=== PATIENT | male | born 1960 | race Caucasian/White ===

== ENCOUNTER → 2018-04-17 06:45 | Outpatient (CLI) | payer OTHER, SELFPAY | PROVIDERS: Family Provider Nurse Practitioner Primary Care; PCP Nurse Practitioner Primary Care | DX: K42.9 Umbilical hernia without obstruction or gangrene (principal); K40.90 Unilateral inguinal hernia, without obstruction or gangrene, not specified as recurrent; R10.31 Right lower quadrant pain | CPT/HCPCS: 74177; Q9967 ==

== ENCOUNTER 2018-09-07 09:42 | Inpatient (IN) | payer OTHER, SELFPAY ==
[2018-09-07] VITALS (12 sets, daily range): BP systolic 123–146; BP diastolic 72–83; PULSE 66–82; RESP 14–22; TEMP 36.4–37.1; O2SAT 95–99; BMI 28.8; BMI 28.6; BMI 28.7
--- NOTE | 2018-09-07 09:44 | NURSING ---
NO OLD EKGS
--- NOTE | 2018-09-07 10:01 | EKG12_ITS ---
Test Reason : CP Blood Pressure : / mmHG Vent. Rate : 081 BPM Atrial Rate : 081 BPM P-R Int : 200 ms QRS Dur : 092 ms QT Int : 382 ms P-R-T Axes : 065 085 097 degrees QTc Int : 443 ms Sinus rhythm with occasional Premature ventricular complexes Possible Left atrial enlargement Nonspecific ST abnormality Abnormal ECG Confirmed by CHARAN BAKER, GREG ([id number]), editor magazine WILBUR ALMEIDA ([id number]) on 09/12/2018 4:55:01 PM Referred By: SONG Confirmed By:GREG FARRAR MD
--- NOTE | 2018-09-07 10:01 | RAD_ITS ---
STUDY: X-RAY CHEST REASON FOR EXAM: Male, 57 years old. Chest pain. Shortness of breath. TECHNIQUE: Single AP portable view of the chest. COMPARISON: None. FINDINGS: EKG electrodes are seen. The lungs are clear and expanded. There is no demonstrated pleural abnormality. Sternal cerclage wires and vascular clips are present from a prior sternotomy and coronary artery bypass graft procedure (CABG). Borderline cardiomegaly. Normal mediastinum and wanda. Normal visualized pulmonary arteries. Normal visualized aortic arch and descending thoracic aorta. Normal visualized thoracic spine. Normal visualized ribs, clavicles, and shoulders. There is no demonstrated abnormality of the visualized soft tissue structures of the upper abdomen. RAD/Chest 1 View (Portable) IMPRESSION: Borderline cardiomegaly. Electronically Signed: Corby Summers MD at 11:14 EST Tel [phone], Service support ,
[2018-09-07 10:34] LABS: Absolute Lymphocyte Count 1.74 X10^3/ul (0.83-4.51); Absolute Neutrophil Count 5.2 X10^3/uL (2.0-7.7); Basophil# 0.03 X10^3/uL; Basophil% 0.4 % (0-1); Eosinophil# 0.08 X10^3/uL; Hematocrit 50.2 % (40-54); Hemoglobin 17.1 g/dl (13.0-16.5); Lymphocyte # 1.74 X10^3/ul (4.0); Lymphocyte % 21.6 % (19-41); Mean Corp Hgb Conc 34.1 g/gl (32-36); Mean Corpuscular Hgb 32.1 pg (27.0-32.0); Mean Corpuscular Volume 94.2 fL (80-94); Mean Platelet Vol. 11.4 fl (6.2-12.0); Monocyte# 0.97 X10^3/uL; Neutrophil # 5.23 X10^3/uL (2.7-7.7); Neutrophil % 64.8 % (47-70); Platelet Count 158 K/mm3 (150-450); RBC Distribution Width CV 13.6 % (11.6-14.6); RBC Distribution Width SD 46.6 fl (35.1-43.9); Red Blood Count 5.33 M/mm3 (4.6-6.2); White Blood Count 8.1 K/mm3 (4.4-11.0)
[2018-09-07 10:35] LABS: POSITIVE COUNT NO; POSITIVE DIFFERENTIAL NO; POSITIVE MORPHOLOGY NO
[2018-09-07] MEDS: 0.9% Normal Saline 1,000 ML 150 ML IV (10:35)
[2018-09-07] MEDS: Aspirin 81 MG TAB.CHEW 324 MG PO (10:35)
[2018-09-07 10:48] LABS: Anion Gap 12 (5-15); BUN 16 mg/dL (7-18); BUN/Creat Ratio 13.6 RATIO (10-20); Calcium,Total 8.6 mg/dL (8.5-10.1); Chloride 106 mmol/L (98-107); Creatinine, Serum 1.18 mg/dL (0.70-1.30); EST Glomerular Filtration Rate 67 mL/min (>60); Est Glom Filt Rate - Afr Amer 81 mL/min (>60); Estimated Creatinine Clearance 66.02 ml/min; Glucose 137 mg/dL (74-106); Potassium 3.8 mmol/L (3.5-5.1); Sodium Level 142 mmol/L (136-145)
--- NOTE | 2018-09-07 10:51 | ED.RN ---
LAB RESULTED TROPONIN 15.6, PHYSICIAN NOTIFIED
--- NOTE | 2018-09-07 10:55 | ED.VISSUMM ---
- ER Visit Summary Date of Service: 09/07/18 Chief Complaint: Chest pain History of Present Illness: The patient is a 57 M who sees Elif Bobo. 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 He has a history of a four-vessel CABG in 2006. Patient reports that over the past 6 weeks he has had increasing dyspnea on exertion. 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 This is been progressively worsening. 3 days ago he had an episode of chest pain while unloading a truck. Yesterday he had an episode while driving. This morning he had an episode lasted approximately 20 minutes while he was walking around at home. Describes the pain as crushing. Is 9 out of 10 at worst and is pain-free currently. Is worsened by exertion and relieved by time. States pain does make him short of breath. Denies any nausea, vomiting, or diaphoresis. Physical Examination: Vitals: Stable. Afebrile. General: Well-nourished and well-developed. Head: Normocephalic atraumatic. Neck: Supple, no lymphadenopathy. No JVD. Nontender. Cardiovascular: Regular rate and rhythm. No murmurs. Respiratory: No respiratory distress. Clear to auscultation bilaterally. Abdominal: Soft, nontender, nondistended, normal bowel sounds. No guarding, rebound, or peritoneal signs. Back: Nontender. Extremities: Nontender, no edema. Skin: Normal color, no rash. Neurologic: Alert and oriented ?3. Cranial nerves II through XII are intact. Normal strength and sensation. Psych: Normal affect. Test Results: EKG is sinus at 81 with a PVC. He has inferolateral ST depression. There is no old EKG for comparison. His troponin is 15.6. Chem-7 is more for glucose of 137. CBC is more for hemoglobin of 17.1 monocytes of 12. Chest x-ray shows cardiomegaly. No failure. Emergency Department Course and Treatment: Patient was treated with aspirin p.o. initially. When his troponin returned he was discussed with Dr. Damian. He was given heparin IV with a full bolus. He was given 300 mg of Plavix p.o. Treatment Plan: Patient will be discussed with the hospitalist and admitted for further evaluation and treatment. Disposition: Admitted in serious condition. Impression: 1. Non-ST elevation [place]. 2. ROBERTO CARLOS score of 4. 3. Critical care time 30 minutes. This note was generated with [employer] dictation software. It may contain incorrect words, spelling, and punctuation that were not noted in review of the chart prior to signing ED Disposition - Plan for ED Patient: Chief Complaint: Chest Pain Referrals: Elif Bobo, RADHA-C [Primary Care Provider] -
--- NOTE | 2018-09-07 10:59 | ED.DCSUM_ITS ---
- ER Visit Summary Date of Service: 09/07/18 Chief Complaint: Chest pain History of Present Illness: The patient is a 57 M who sees Elif Bobo. He does not see a high tension tester. He has a history of a four-vessel CABG in 2006. Patient reports that over the past 6 weeks he has had increasing dyspnea on e xertion. 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 This is been progressively worsening. 3 days ago he had an episode of chest pain while unloading a truck. Yesterday he had an episode while driving. This morning he had an episode lasted approximately 20 minutes while he was walking around at home. Describes the pain as crushing. Is 9 out of 10 at worst and is pain-free currently. Is worsened by exertion and relieved by time. States pain does make him short of breath. Denies any nausea, vomiting, or diaphoresis. Physical Examination: Vitals: Stable. Afebrile. General: Well-nourished and well-developed. Head: Normocephalic atraumatic. Neck: Supple, no lymphadenopathy. No JVD. Nontender. Cardiovascular: Regular rate and rhythm. No murmurs. Respiratory: No respiratory distress. Clear to auscultation bilaterally. Abdominal: Soft, nontender, nondistended, normal bowel sounds. No guarding, rebound, or peritoneal signs. Back: Nontender. Extremities: Nontender, no edema. Skin: Normal color, no rash. Neurologic: Alert and oriented ?3. Cranial nerves II through XII are intact. Normal strength and sensation. Psych: Normal affect. Test Results: EKG is sinus at 81 with a PVC. He has inferolateral ST depression. There is no old EKG for comparison. His troponin is 15.6. Chem-7 is more for glucose of 137. CBC is more for hemoglobin of 17.1 monocytes of 12. Chest x-ray shows cardiomegaly. No failure. Emergency Department Course and Treatment: Patient was treated with aspirin p.o. initially. When his troponin returned he was discussed with Dr. Damian. He was given heparin IV with a full bolus. He was given 300 mg of Plavix p.o. Treatment Plan: Patient will be discussed with the hospitalist and admitted for further evaluation and treatment. Disposition: Admitted in serious condition. Impression: 1. Non-ST elevation [place]. 2. ROBERTO CARLOS score of 4. 3. Critical care time 30 minutes. This note was generated with [employer] dictation software. It may contain incorrect words, spelling, and punctuation that were not noted in review of the chart prior to signing ED Disposition - Plan for ED Patient: Chief Complaint: Chest Pain Referrals: Elif Bobo, RADHA-C [Primary Care Provider] -
[2018-09-07 11:13] LABS: International Normalized Ratio 0.9; Prothrombin Time (Protime)PT. 12.5 SECONDS (11.7-14.9)
[2018-09-07] MEDS: Heparin Injection (Vial) 5,000 UNIT/ML VIAL 6000 UNIT IV (11:19)
[2018-09-07] MEDS: HEPARIN/D5w 25,000 UNITS 25,000 UNITS/250 ML IV.SOLN. 12 UNITS IV (11:19)
[2018-09-07] MEDS: Clopidogrel Bisulfate 300 MG Tablet PO (11:19)
--- NOTE | 2018-09-07 11:23 | CASEMGMT ---
According to [employer] website, the following are in-network tertiary facilities: [facility], [place], [facility], [facility], [facility], and . Ld ARECHIGA CM
--- NOTE | 2018-09-07 11:34 | EKG12_ITS ---
Test Reason : CHEST PAIN Blood Pressure : / mmHG Vent. Rate : 062 BPM Atrial Rate : 062 BPM P-R Int : 206 ms QRS Dur : 088 ms QT Int : 408 ms P-R-T Axes : 057 076 042 degrees QTc Int : 414 ms Normal sinus rhythm Possible Left atrial enlargement Nonspecific ST and T wave abnormality Abnormal ECG When compared with ECG of 07-SEP-2018 09:43, MANUAL COMPARISON REQUIRED, DATA IS UNCONFIRMED Confirmed by CHARAN BAKER, GREG ([id number]), editorial manager WILBUR ALMEIDA ([id number]) on 09/12/2018 5:37:49 PM Referred By: JACKI Confirmed By:GREG FARRAR MD
--- NOTE | 2018-09-07 11:36 | ECHOD_ITS ---
Reason For Study: Chest pain Procedure This was a 2D Doppler, Color Flow transthoracic echocardiogram. Exam performed portable in patient room. Left Ventricle Normal left ventricle. Mild concentric left ventricular hypertrophy. Left ventricular systolic function is normal. Mild segmental systolic dysfunction (see wall motion). The estimated ejection fraction is 50 %. Mid-Anterior : Hypokinetic. [place] : Hypokinetic. Right Ventricle Normal RV size. Normal systolic function. Atria Normal left atrium. Normal right atrium. Mitral Valve Normal mitral valve. Mild (1+) eccentric mitral valve insufficiency. Tricuspid Valve Normal tricuspid valve. Mild (1+) tricuspid valve insufficiency. Pulmonary artery systolic pressure is 52 mmHg. Moderate pulmonary hypertension. Aortic Valve Mild (1+) eccentric aortic valve insufficiency. Pulmonic Valve Normal pulmonic valve. Mild (1+) pulmonic valve insufficiency. Great Vessels Normal aortic root. The pulmonary artery is normal size. Normal inferior vena cava. Pericardium/Pleural No pericardial effusion. MMode/2D Measurements & Calculations LVIDd: 4.3 cm IVSd: 1.2 cm Ao root diam: 2.9 cm LVIDs: 3.2 cm LVPWd: 1.4 cm RVDd: 3.8 cm FS: 25.0 % LAV(MOD-bp): 45.8 ml LVAd ap4: 32.7 cm2 SV(MOD-sp4): 50.7 ml LAV(MOD-bp) Indexed: 22.9 ml/m2 EDV(MOD-sp4): 101.4 ml LAV(MOD-sp2): 34.5 ml EDV(sp4-el): 105.6 ml LAV(MOD-sp4): 53.0 ml LVAs ap4: 22.0 cm2 ESV(MOD-sp4): 50.7 ml ESV(sp4-el): 52.9 ml EF(MOD-sp4): 50.0 % EF(sp4-el): 49.9 % SV(sp4-el): 52.7 ml LA A4 area: 19.6 cm2 LA dimension(2D): 4.4 cm RA A4 area: 17.2 cm2 Doppler Measurements & Calculations MV E max deepak: 92.9 cm/sec Lat Peak E' Deepak: 10.1 cm/sec Med Peak E' Deepak: 5.9 cm/sec MV A max deepak: 80.8 cm/sec E/E' lat: 9.2 E/E' med: 15.6 MV E/A: 1.1 Ao V2 max: 99.7 cm/sec LV V1 max: 83.7 cm/sec PA V2 max: 104.5 cm/sec Ao max P.0 mmHg LV V1 max P.8 mmHg TR max deepak: 343.5 cm/sec TR max P.2 mmHg Interpretation Summary Normal left ventricle. Left ventricular systolic function is normal. Mild segmental systolic dysfunction (see wall motion). The estimated ejection fraction is 50 %. Mild (1+) tricuspid valve insufficiency. Pulmonary artery systolic pressure is 52 mmHg. Moderate pulmonary hypertension. Ordering Physician: Devin Armenta Referring Physician: Elif Bobo Performed By: Kerri Patel RDCS
--- NOTE | 2018-09-07 14:09 | PCM.HP.STD ---
Problem List (1) NSTEMI (non-ST elevated myocardial infarction) Status: Acute (2) Back pain Status: Chronic (3) Dyslipidemia Status: Chronic (4) CAD (coronary artery disease) Status: Chronic Comment: History CABG ?2006 (5) HTN (hypertension) Status: Chronic History of Present Illness Date of Admission: 09/07/18 Chief Complaint: Chest Pain The patient is a 57 year old M with PMH as below who presents with a few day history of substernal chest pain. He states that it is inconsistent as to when it happens. 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 However he went to see a nurse practitioner yesterday for his chest pain and on the brought drive from her office to obtain labs at [facility], he had chest pain for about 35-40 minutes. And then this morning he woke up and was just sitting drinking coffee and had another episode of chest pain for 35 minutes. The pain does not radiate anywhere, but it is substernal and crushing. He states that he had four-vessel CABG 11 years ago and at that time he had chest pain that was radiating up to his head. In the ER he was found to have an elevated troponin to 15.6 which increased to 16.9 on repeat, EKG had inferior lateral ST depressions, but no ST elevations. Cardiology was called and they recommended a heparin drip and a Plavix bolus, which he received down in the ER. He will be admitted for NSTEMI and cardiac cath in the morning. Past Medical History Past Medical History (Chronic Problems): Chronic Problems Back pain (Chronic) Benign hematuria (Chronic) Dyslipidemia (Chronic) CAD (coronary artery disease) (Chronic) History CABG ?2006 HTN (hypertension) (Chronic) Allergies No Known Allergies Allergy (Verified 09/07/18 09:47) Home Medications: Ambulatory Orders Medication Instructions Recorded Niacin [Niacin ER] 1,000 mg PO QODAY 04/21/15 Albuterol IH (ProAir) [Proair Hfa] 1 - 2 puff INHALATION Q4H PRN 09/07/18 Hydrochlorothiazide [Hctz] 12.5 mg PO DAILY 09/07/18 Meloxicam [Mobic] 15 mg PO QHS 09/07/18 Metoprolol Tartrate [Lopressor 100 mg PO BID 09/07/18 (beta juan)] Tiotropium Br/Olodaterol HCl 1 puff IH DAILY 09/07/18 [Stiolto Respimat Inhal [place]] Surgical History: herniorrhaphy, - - Four-vessel CABG Lives: Alone Smoking Status: Current every day smoker Tobacco Use: Cigarettes Alcohol: None Drugs: None - *Family History Maternal History Items: Heart Disease, Stroke Paternal History Items: Cancer, Heart Disease Review of Systems Constitutional: Denies: Chills, Fever, Weight Change HEENT: Denies: Head Aches, Sinus Congestion, Sinus Drainage Cardiovascular: Reports: Chest Pain. Denies: Palpitations Respiratory: Reports: Shortness of Breath. Denies: Cough, Shortness of breath at rest, Sputum production Gastrointestinal: Denies: Abdominal Pain, Nausea, Vomiting Genitourinary: Denies: Dysuria Musculoskeletal: Denies: Joint Pain, Joint Tenderness Skin: Denies: Rash, Wounds Neurological: Denies: Numbness, Tingling, Focal weakness Psychiatric: Denies: Anxiety, Depression Hematologic/ Lymphatic: Denies: Easy Bruising, Easy Bleeding VTE Information - Inpt Only VTE Present on Admission: No Patient Problems: Active and Suspected Problems NSTEMI (non-ST elevated myocardial infarction) (Acute) - Physical Exam General: Alert, Oriented x3, Cooperative, No apparent distress HEENT: Atraumatic, PERRLA, EOMI, Normocephalic Oral: Moist Mucosa Neck: Supple, No JVD, Trachea Midline Lungs: Clear to auscultation, Normal air movement, No rhonchi, No wheeze, No rales Cardiovascular: Regular rate, Regular Rhythm, Normal S1, Normal S2, No murmurs, No rub noted, No Gallop Abdomen: Soft, Non Tender, Non-Distended, No Hepato-splenomegaly Extremities: No edema, Capillary Refill Less than 3 Seconds Skin: No rashes, No breakdown Neurological: Neuro grossly intact, Sensory exam intact to light touch and pain Psych/Mental Status: Normal Affect, Appropriate Vital Signs Temp Pulse Resp BP Pulse Ox 98.1 F 70 16 146/72 H 97 09/07/18 11:39 09/07/18 12:17 09/07/18 11:39 09/07/18 11:39 09/07/18 11:39 Oxygen Flow Rate (L/min) 2 Oxygen Delivery Method Room Air Weight: 188 lb 7.924 oz Body Mass Index (BMI) 28.6 Laboratory Tests Past 24 Hrs 09/07/18 09/07/18 09/07/18 09:54 09:54 09:57 WBC 8.1 RBC 5.33 Hgb 17.1 H Hct 50.2 MCV 94.2 H MCH 32.1 H MCHC 34.1 RDW 13.6 RDW Differential 46.6 H Plt Count 158 MPV 11.4 Immature Gran % (Auto) 0.200 Neut % (Auto) 64.8 Lymph % (Auto) 21.6 [place] % (Auto) 12.0 H Eos % (Auto) 1.0 Baso % (Auto) 0.4 Absolute Neuts (auto) 5.2 Absolute Lymphs (auto) 1.74 Total Counted Not Reportable PT 12.5 INR 0.9 APTT 27.0 Sodium 142 Potassium 3.8 Chloride 106 Carbon Dioxide 24.0 Anion Gap 12 BUN 16 Creatinine 1.18 Estim Creat Clear Calc 66.02 Est GFR (MDRD) Af Amer 81 Est GFR (MDRD) Non-Af 67 BUN/Creatinine Ratio 13.6 Glucose 137 H Calcium 8.6 Troponin I 15.600 H* 09/07/18 12:54 WBC RBC Hgb Hct MCV MCH MCHC RDW RDW Differential Plt Count MPV Immature Gran % (Auto) Neut % (Auto) Lymph % (Auto) [place] % (Auto) Eos % (Auto) Baso % (Auto) Absolute Neuts (auto) Absolute Lymphs (auto) Total Counted PT INR APTT Sodium Potassium Chloride Carbon Dioxide Anion Gap BUN Creatinine Estim Creat Clear Calc Est GFR (MDRD) Af Amer Est GFR (MDRD) Non-Af BUN/Creatinine Ratio Glucose Calcium Troponin I 16.900 H* Assessment/Plan All Active Problems NSTEMI (non-ST elevated myocardial infarction) (Acute) 1. Coronary artery disease status post four-vessel CABG 11 years ago/NSTEMI/hyperlipidemia/hypertension -Continue with heparin drip -Received Plavix load as well as aspirin -Daily aspirin and Plavix -Currently on niacin because he has tried multiple different statins and had myalgias and significant joint pain -Plan for cardiac cath tomorrow -Echo pending -Systolic blood pressure so far in the 120s-140s, can continue with hydrochlorothiazide and metoprolol. Since cardiology is consulted we will leave it up to them to decide if they want to make changes to his blood pressure medications 2. COPD -Stable -Continue with his home inhaler occasions DVT: Heparin drip Code Visit Inpatient E&M: 40083 Init Hosp L3
--- NOTE | 2018-09-07 16:10 | CON.PCM_ITS ---
Problem List (1) NSTEMI (non-ST elevated myocardial infarction) Status: Acute Reason for Consult Date of Consultation: 09/07/18 History of Present Illness: The patient is a 57 year old M with past medical history significant for coronary artery disease status post CABG in 2006. Does not follow with a medication specialist on a regular basis. The patient also has history of hypertension. He takes his blood pressure medications but but does not take an aspirin. According to him, he just did not know that he needs to take aspirin on a daily basis. 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 The episode lasted about 10 minutes. He associated with shortness of breath. He has had another episode last night. This episode lasted about 30-35 minutes and was associated with diaphoresis. He describes his chest pressure as going through his anterior chest. Has any radiation to the arm neck or shoulder shoulder. No radiation to the jaw. The patient again had recurrence of his chest discomfort this morning which woke him up from sleep. According to the patient, this was the most intense episode. He had diaphoresis and shortness of breath. No nausea or vomiting. According to the p atient, by the time he reached the emergency room, his pain had greatly subsided by itself. His pain was totally relieved by itself shortly thereafter. The patient's troponin was noted to be elevated. He has therefore been admitted with a diagnosis of non-ST elevation myocardial infarction. He remains pain- free here in the hospital. [] Past Medical History Allergies/Adverse Reactions: Allergies No Known Allergies Allergy (Verified 09/07/18 09:47) Home Medications: Ambulatory Orders Medication Instructions Recorded Niacin [Niacin ER] 1,000 mg PO QODAY 04/21/15 Albuterol IH (ProAir) [Proair Hfa] 1 - 2 puff INHALATION Q4H PRN 09/07/18 Hydrochlorothiazide [Hctz] 12.5 mg PO DAILY 09/07/18 Meloxicam [Mobic] 15 mg PO QHS 09/07/18 Metoprolol Tartrate [Lopressor 100 mg PO BID 09/07/18 (beta juan)] Tiotropium Br/Olodaterol HCl 1 puff IH DAILY 09/07/18 [Stiolto Respimat Inhal [place]] Past Medical History (Chronic Problems): Chronic Problems Back pain (Chronic) Benign hematuria (Chronic) Dyslipidemia (Chronic) CAD (coronary artery disease) (Chronic) History CABG ?4 2006 HTN (hypertension) (Chronic) Surgical History: herniorrhaphy, - - Four-vessel CABG - *Family History Paternal History Items: Cancer, Heart Disease Maternal History Items: Heart Disease, Stroke Lives: Alone Smoking Status: Current every day smoker Tobacco Use: Cigarettes Alcohol: None Drugs: None Review of Systems - Review of Systems General: Denies: Fever, Chills, Anorexia, Weight Loss HEENT: Denies: Head Aches Cardiovascular: Reports: Chest Discomfort at Rest, Shortness of Breath at Rest. Denies: Orthopnea, PND, Near Syncope, Syncope Gastrointestinal: Denies: Abdominal Discomfort, Jaundice, Nausea, Emesis, Hematemesis Muscoloskeletal: Denies: Myalgias Neurological: Denies: History of TIA, History of CVA Hematologic/ Lymphatic: Denies: Anemia, Easy Brusing, Easy Bleeding Subjectve: Comfortable. No apparent distress. Sitting up in a chair. Objective: Vital Signs Temp Pulse Resp BP Pulse Ox 98.1 F 66 16 146/72 H 97 09/07/18 11:39 09/07/18 15:21 09/07/18 11:39 09/07/18 11:39 09/07/18 11:39 Oxygen Flow Rate (L/min) 2 Oxygen Delivery Method Room Air Weight: 85.5 kg Body Mass Index (BMI) 28.6 General: Healthy Appearing, Awake, Alert, Oriented x 3, No Acute Distress HEENT: Atraumatic, Normocephalic Oral: Moist Mucosa Neck: Supple, No JVD Lungs: Clear to auscultation Cardiovascular: Regular Rhythm, Normal S1, Normal S2 Vascular: No Carotid Bruits 09/07/18 09:54: WBC 8.1, RBC 5.33, Hgb 17.1 H, Hct 50.2, MCV 94.2 H, MCH 32.1 H, MCHC 34.1, RDW 13.6, RDW Differential 46.6 H, Plt Count 158, MPV 11.4, Immature Gran % (Auto) 0.200, Neut % (Auto) 64.8, Lymph % (Auto) 21.6, [place] % (Auto) 12.0 H, Eos % (Auto) 1.0, Baso % (Auto) 0.4, Absolute Neuts (auto) 5.2, Total Counted Not Reportable 09/07/18 09:54: Sodium 142, Potassium 3.8, Chloride 106, Carbon Dioxide 24.0, Anion Gap 12, BUN 16, Creatinine 1.18, Est GFR (MDRD) Af Amer 81, Est GFR (MDRD) Non-Af 67, BUN/Creatinine Ratio 13.6, Glucose 137 H, Calcium 8.6, Troponin I 15.600 H* 09/07/18 09:57: PT 12.5, INR 0.9, APTT 27.0 09/07/18 12:54: Troponin I 16.900 H* Rhythm: EKG: ECHO: Stress Test: Cardiac Cath: PCI: CT Surgery: Holter monitor: EPS: PPM: CXR: Chest CT Scan:
--- NOTE | 2018-09-07 17:05 | PCA ---
FAXED TO [facility] IN [facility], [place] FOR BYPASS REPORT FROM 2006. HIM STATES THEY ONLY KEEP RECORDS 10 YEARS. THEY WILL CHECK TO SEE IF RECORDS STILL AVAILABLE.
[2018-09-07] MEDS: Nitroglycerin Oint 1 INCH PACKET TRANSDERM. ×2 (17:20→21:15)
[2018-09-07] MEDS: Enoxaparin 80 MG/0.8 ML Syringe SC (17:20)
[2018-09-07 17:55] LABS: Partial Thromboplast Time 85.9 Seconds (24.1-36.2)
--- NOTE | 2018-09-07 19:11 | PCA ---
Received available records for bypass surgery and placed on chart
[2018-09-07] MEDS: Metoprolol Tartrate 100 MG Tablet PO (21:14)
[2018-09-08] VITALS (32 sets, daily range): BP systolic 98–158; BP diastolic 29–108; PULSE 62–82; RESP 12–26; TEMP 35.6–37; O2SAT 95–100; BMI 28.7
[2018-09-08 04:55] LABS: Absolute Lymphocyte Count 1.35 X10^3/ul (0.83-4.51); Absolute Neutrophil Count 5.5 X10^3/uL (2.0-7.7); Basophil# 0.04 X10^3/uL; Basophil% 0.5 % (0-1); Eosinophils% 1.3 % (0-5); Hematocrit 43.6 % (40-54); Hemoglobin 15.2 g/dl (13.0-16.5); Lymphocyte # 1.35 X10^3/ul (4.0); Lymphocyte % 17.3 % (19-41); Mean Corp Hgb Conc 34.9 g/gl (32-36); Mean Corpuscular Hgb 32.9 pg (27.0-32.0); Mean Corpuscular Volume 94.4 fL (80-94); Mean Platelet Vol. 10.6 fl (6.2-12.0); Monocyte# 0.81 X10^3/uL; Monocyte% 10.4 % (0-10); Neutrophil # 5.46 X10^3/uL (2.7-7.7); Neutrophil % 70.1 % (47-70); POSITIVE COUNT NO; POSITIVE DIFFERENTIAL NO; POSITIVE MORPHOLOGY NO; Platelet Count 134 K/mm3 (150-450); RBC Distribution Width CV 13.7 % (11.6-14.6); RBC Distribution Width SD 45.6 fl (35.1-43.9); Red Blood Count 4.62 M/mm3 (4.6-6.2); White Blood Count 7.8 K/mm3 (4.4-11.0)
[2018-09-08 05:03] LABS: Prothrombin Time (Protime)PT. 13.3 SECONDS (11.7-14.9)
[2018-09-08 05:04] LABS: Partial Thromboplast Time 30.4 Seconds (24.1-36.2)
[2018-09-08] MEDS: Nitroglycerin Oint 1 INCH PACKET TRANSDERM. (05:09)
[2018-09-08] MEDS: Clopidogrel Bisulfate 75 MG Tablet PO (05:09)
[2018-09-08] MEDS: 0.9% Normal Saline 1,000 ML 15 ML IV (05:09)
[2018-09-08] MEDS: Metoprolol Tartrate 100 MG Tablet PO ×2 (05:09→21:26)
[2018-09-08] MEDS: Aspirin 81 MG TAB.CHEW PO (05:09)
[2018-09-08 05:20] LABS: Anion Gap 7 (5-15); BUN 17 mg/dL (7-18); BUN/Creat Ratio 17.7 RATIO (10-20); Chloride 109 mmol/L (98-107); Cholesterol 198 mg/dL (200); Creatinine, Serum 0.96 mg/dL (0.70-1.30); EST Glomerular Filtration Rate 85 mL/min (>60); Est Glom Filt Rate - Afr Amer 103 mL/min (>60); Estimated Creatinine Clearance 81.15 ml/min; Glucose 96 mg/dL (74-106); High Density Lipoprotein 29 mg/dL; Potassium 4.1 mmol/L (3.5-5.1); Sodium Level 142 mmol/L (136-145); Triglycerides 402 mg/dL
--- NOTE | 2018-09-08 05:55 | EKG12_ITS ---
Test Reason : AM EKG Blood Pressure : / mmHG Vent. Rate : 065 BPM Atrial Rate : 065 BPM P-R Int : 210 ms QRS Dur : 086 ms QT Int : 414 ms P-R-T Axes : 056 060 069 degrees QTc Int : 430 ms Sinus rhythm with 1st degree A-V block Possible Left atrial enlargement Nonspecific ST and T wave abnormality Abnormal ECG When compared with ECG of 07-SEP-2018 11:40, MANUAL COMPARISON REQUIRED, DATA IS UNCONFIRMED Confirmed by CHARAN BAKER, GREG ([id number]), research editor WILBUR ALMEIDA ([id number]) on 09/12/2018 5:36:43 PM Referred By: DR ECHEVERRIA Confirmed By:GREG FARRAR MD
--- NOTE | 2018-09-08 09:10 | CASEMGMT ---
HAWK ARMAS NOTE: Pt states he does not have LW or HCPOA . Interested in more information but states does not want to talk with SW at this time to complete paperwork. Provided information on advanced directives and given Social Service rac card with number to call if chooses in the future to utilize [facility] social work for advanced directive completion. Educated patient that, if patient so chooses, can come back to [facility] and meet with a SW as an outpatient to complete health care advanced directives. Patient expresses understanding. Finesse HUMPHREY RN CM
--- NOTE | 2018-09-08 10:52 | PCM.PN.HOSP ---
Patient Problems: Active and Suspected Problems NSTEMI (non-ST elevated myocardial infarction) (Acute) Subjective: States that he is a little short of breath though no chest pain at the moment. Waiting for cardiac cath Vitals/I&O's: Vital Signs Temp Pulse Resp BP Pulse Ox 98.6 F 63 18 110/65 95 09/08/18 05:05 09/08/18 07:12 09/08/18 05:05 09/08/18 05:05 09/08/18 05:05 Oxygen Flow Rate (L/min) 2 Oxygen Delivery Method Room Air Weight: 188 lb 7.924 oz Body Mass Index (BMI) 28.6 Intake and Output for Last 24 Hours 09/06/18 09/07/18 09/08/18 23:59 23:59 23:59 Intake Total 308 / 308 0 / 0 Output Total 200 / 200 Balance 108 / 108 0 / 0 General: Alert, Oriented x3, Cooperative, No apparent distress HEENT: Atraumatic, PERRLA, EOMI, Normocephalic Oral: Moist Mucosa Neck: Supple, No JVD, Trachea Midline Lungs: Clear to auscultation, Normal air movement, No rhonchi, No wheeze, No rales Cardiovascular: Regular rate, Regular Rhythm, Normal S1, Normal S2, No murmurs, No rub noted, No Gallop Abdomen: Soft, Non Tender, Non-Distended, No Hepato-splenomegaly Extremities: No edema, Capillary Refill Less than 3 Seconds Skin: No rashes, No breakdown Neurological: Neuro grossly intact, Sensory exam intact to light touch and pain Psych/Mental Status: Normal Affect, Appropriate Laboratory Results 09/07/18 09:54: Sodium 142, Potassium 3.8, Chloride 106, Carbon Dioxide 24.0, Anion Gap 12, BUN 16, Creatinine 1.18, Estim Creat Clear Calc 66.02, Est GFR (MDRD) Af Amer 81, Est GFR (MDRD) Non-Af 67, BUN/Creatinine Ratio 13.6, Glucose 137 H, Calcium 8.6, Troponin I 15.600 H* 09/07/18 09:57: PT 12.5, INR 0.9, APTT 27.0 09/07/18 12:54: Troponin I 16.900 H* 09/07/18 15:30: Troponin I 22.700 H* 09/07/18 17:32: APTT 85.9 H 09/08/18 04:40: WBC 7.8, RBC 4.62, Hgb 15.2, Hct 43.6, MCV 94.4 H, MCH 32.9 H, MCHC 34.9, RDW 13.7, RDW Differential 45.6 H, Plt Count 134 L, MPV 10.6, Immature Gran % (Auto) 0.400, Neut % (Auto) 70.1 H, Lymph % (Auto) 17.3 L, [place]pherson % (Auto) 10.4 H, Eos % (Auto) 1.3, Baso % (Auto) 0.5, Absolute Neuts (auto) 5.5, Absolute Lymphs (auto) 1.35, Total Counted Not Reportable 09/08/18 04:40: Sodium 142, Potassium 4.1, Chloride 109 H, Carbon Dioxide 26.0, Anion Gap 7, BUN 17, Creatinine 0.96, Estim Creat Clear Calc 81.15, Est GFR (MDRD) Af Amer 103, Est GFR (MDRD) Non-Af 85, BUN/Creatinine Ratio 17.7, Glucose 96, Calcium 8.0 L, Triglycerides 402 H, Cholesterol 198, LDL Cholesterol TNP, VLDL Cholesterol TNP, HDL Cholesterol 29 L 09/08/18 04:40: PT 13.3, INR 1.0, APTT 30.4 Current Medications Aspirin (Aspirin, Baby) 81 mg PO DAILY@0800 [facility] Last Admin: 09/08/18 05:09 Dose: 81 mg Clopidogrel Bisulfate (Plavix) 75 mg PO DAILY [facility] Last Admin: 09/08/18 05:09 Dose: 75 mg Heparin Sodium (Porcine) (Heparin Na) 0 unit IV UD PRN; Protocol Hydrochlorothiazide () 12.5 mg PO DAILY [facility] Sodium Chloride () 1,000 mls @ 15 mls/hr IV .Q48H [facility] Last Admin: 09/08/18 05:09 Dose: 15 mls/hr Magnesium Hydroxide (Milk Of Magnesia) 30 ml PO DAILY PRN PRN Reason: Constipation Metoprolol Tartrate (Lopressor (Beta Kim)) 100 mg PO BID [facility] Last Admin: 09/08/18 05:09 Dose: 100 mg Niacin (Niaspan) 1,000 mg PO QODAY [facility] Last Admin: 09/08/18 05:09 Dose: 1,000 mg Nitroglycerin (Nitrobid) 1 inch TRANSDERM. Q8 [facility] Last Admin: 09/08/18 05:09 Dose: 1 inch Sodium Chloride () 5 - 15 ml IV UD PRN PRN Reason: SALINE FLUSH Medical Necessity - Tobacco Use Smoking Status: Current every day smoker Tobacco Use: Cigarettes Assessment/Plan All Active Problems NSTEMI (non-ST elevated myocardial infarction) (Acute) 1. Coronary artery disease status post four-vessel CABG 11 years ago/NSTEMI/hyperlipidemia/hypertension -Hold heparin drip for procedure -Received Plavix load as well as aspirin -Daily aspirin and Plavix -Currently on niacin because he has tried multiple different statins and had myalgias and significant joint pain -Plan for cardiac cath today -Echo with an EF of 50% with mild segmental systolic dysfunction in the mid anterior and apex, with a pulmonary artery systolic pressure of 52 mmHg -Systolic blood pressure so far in the 120s-140s, can continue with hydrochlorothiazide and metoprolol. Since cardiology is consulted we will leave it up to them to decide if they want to make changes to his blood pressure medications 2. COPD -Stable -Continue with his home inhaler occasions DVT: Heparin drip Code Visit Inpatient E&M: 24994 Subs Hosp L2
--- NOTE | 2018-09-08 10:55 | PN_ITS ---
Patient Problems: Active and Suspected Problems NSTEMI (non-ST elevated myocardial infarction) (Acute) Subjective: States that he is a little short of breath though no chest pain at the moment. Waiting for cardiac cath Vitals/I&O's: Vital Signs Temp Pulse Resp BP Pulse Ox 98.6 F 63 18 110/65 95 09/08/18 05:05 09/08/18 07:12 09/08/18 05:05 09/08/18 05:05 09/08/18 05:05 Oxygen Flow Rate (L/min) 2 Oxygen Delivery Method Room Air Weight: 188 lb 7.924 oz Body Mass Index (BMI) 28.6 Intake and Output for Last 24 Hours 09/06/18 09/07/18 09/08/18 23:59 23:59 23:59 Intake Total 308 / 308 0 / 0 Output Total 200 / 200 Balance 108 / 108 0 / 0 General: Alert, Oriented x3, Cooperative, No apparent distress HEENT: Atraumatic, PERRLA, EOMI, Normocephalic Oral: Moist Mucosa Neck: Supple, No JVD, Trachea Midline Lungs: Clear to auscultation, Normal air movement, No rhonchi, No wheeze, No rales Cardiovascular: Regular rate, Regular Rhythm, Normal S1, Normal S2, No murmurs, No rub noted, No Gallop Abdomen: Soft, Non Tender, Non-Distended, No Hepato-splenomegaly Extremities: No edema, Capillary Refill Less than 3 Seconds Skin: No rashes, No breakdown Neurological: Neuro grossly intact, Sensory exam intact to light touch and pain Psych/Mental Status: Normal Affect, Appropriate Laboratory Results 09/07/18 09:54: Sodium 142, Potassium 3.8, Chloride 106, Carbon Dioxide 24.0, Anion Gap 12, BUN 16, Creatinine 1.18, Estim Creat Clear Calc 66.02, Est GFR (MDRD) Af Amer 81, Est GFR (MDRD) Non-Af 67, BUN/Creatinine Ratio 13.6, Glucose 137 H, Calcium 8.6, Troponin I 15.600 H* 09/07/18 09:57: PT 12.5, INR 0.9, APTT 27.0 09/07/18 12:54: Troponin I 16.900 H* 09/07/18 15:30: Troponin I 22.700 H* 09/07/18 17:32: APTT 85.9 H 09/08/18 04:40: WBC 7.8, RBC 4.62, Hgb 15.2, Hct 43.6, MCV 94.4 H, MCH 32.9 H, MCHC 34.9, RDW 13.7, RDW Differential 45.6 H, Plt Count 134 L, MPV 10.6, Immature Gran % (Auto) 0.400, Neut % (Auto) 70.1 H, Lymph % (Auto) 17.3 L, [place] % (Auto) 10.4 H, Eos % (Auto) 1.3, Baso % (Auto) 0.5, Absolute Neuts (auto) 5.5, Absolute Lymphs (auto) 1.35, Total Counted Not Reportable 09/08/18 04:40: Sodium 142, Potassium 4.1, Chloride 109 H, Carbon Dioxide 26.0, Anion Gap 7, BUN 17, Creatinine 0.96, Estim Creat Clear Calc 81.15, Est GFR (MDRD) Af Amer 103, Est GFR (MDRD) Non-Af 85, BUN/Creatinine Ratio 17.7, Glucose 96, Calcium 8.0 L, Triglycerides 402 H, Cholesterol 198, LDL Cholesterol TNP, VLDL Cholesterol TNP, HDL Cholesterol 29 L 09/08/18 04:40: PT 13.3, INR 1.0, APTT 30.4 Current Medications Aspirin (Aspirin, Baby) 81 mg PO DAILY@0800 [facility] Last Admin: 09/08/18 05:09 Dose: 81 mg Clopidogrel Bisulfate (Plavix) 75 mg PO DAILY [facility] Last Admin: 09/08/18 05:09 Dose: 75 mg Heparin Sodium (Porcine) (Heparin Na) 0 unit IV UD PRN; Protocol Hydrochlorothiazide () 12.5 mg PO DAILY [facility] Sodium Chloride () 1,000 mls @ 15 mls/hr IV .Q48H [facility] Last Admin: 09/08/18 05:09 Dose: 15 mls/hr Magnesium Hydroxide (Milk Of Magnesia) 30 ml PO DAILY PRN PRN Reason: Constipation Metoprolol Tartrate (Lopressor (Beta Kim)) 100 mg PO BID [facility] Last Admin: 09/08/18 05:09 Dose: 100 mg Niacin (Niaspan) 1,000 mg PO QODAY [facility] Last Admin: 09/08/18 05:09 Dose: 1,000 mg Nitroglycerin (Nitrobid) 1 inch TRANSDERM. Q8 [facility] Last Admin: 09/08/18 05:09 Dose: 1 inch Sodium Chloride () 5 - 15 ml IV UD PRN PRN Reason: SALINE FLUSH Medical Necessity - Tobacco Use Smoking Status: Current every day smoker Tobacco Use: Cigarettes Assessment/Plan All Active Problems NSTEMI (non-ST elevated myocardial infarction) (Acute) 1. Coronary artery disease status post four-vessel CABG 11 years ago/NSTE [place]/hyperlipidemia/hypertension -Hold heparin drip for procedure -Received Plavix load as well as aspirin -Daily aspirin and Plavix -Currently on niacin because he has tried multiple different statins and had myalgias and significant joint pain -Plan for cardiac cath today -Echo with an EF of 50% with mild segmental systolic dysfunction in the mid anterior and apex, with a pulmonary artery systolic pressure of 52 mmHg -Systolic blood pressure so far in the 120s-140s, can continue with hydrochlorothiazide and metoprolol. Since cardiology is consulted we will leave it up to them to decide if they want to make changes to his blood pressure medications 2. COPD -Stable -Continue with his home inhaler occasions DVT: Heparin drip Code Visit Inpatient E&M: 87962 Subs Hosp L2
--- NOTE | 2018-09-08 12:01 | CASEMGMT ---
RN CM Assessment Presentation: Chest pain; NSTEMI; heart cath with PCI. Plavix PCP: Dr. Narayan Bobo [facility]acy: [facility] Living Arrangements: independently in apartment. DC Plan: Home on discharge
--- NOTE | 2018-09-08 12:05 | CL.I_ITS ---
Patient Name: HEIDI DIEZ Study Date: 09/08/2018 Performing: Joi Damian MD Ht: 68.11 inches 173 cm : 1960 Wt: 189.6 lbs 86 kg Age: 57 Gender: male BSA: 2 PROCEDURE(S) PERFORMED [id number]/COR/CABG [id number] AND/OR PTCA, SINGLE GRAFT CLINICAL PROFILE AND CO-MORBIDITIES Heart Failure: None Angina Classification Anginal Classification w/in 2 Weeks: CCS IV CAD Presentations: Non-STEMI. Symptom onset Date/Time: 09/07/2018 Time Not Available CONCLUSIONS CADET to distal LAD patent. Distal LAD supplying collateral to RPDA SVG to D1 patent. Supplying Prox LAD and septals retrogradely. D1 distal to anastomosis 100% 100% ostial [place] LCX. SVG to OM 100% ostial 100% ostial [place] RCA. SVG to distal RCA 95% ulcerated lesion Successful PTCA/YONI SVG to distal RCA using Resolute Integrity 3.0x15 mm RECOMMENDATIONS ASA Indefinitley Brilinta for at least 12 months DESCRIPTION OF PROCEDURE The patient arrived to the procedure lab. The risks and benefits of the procedure as well as a full d escription of our services here and lack of surgical backup were fully explained to the patient and/o r their significant other prior to the catheterization. The Timeout was completed, verifying the mahnaz ect patient and procedure. The patient's procedural site was prepped and draped in the usual fashion. Local anesthetic was given subcutaneously to left radial region with Lidocaine 2%. Using a modified Seldinger technique, arterial access was obtained via the left radial artery, a 6Fr sheath was insert ed.. Left Coronary Artery selective angiography was performed in multiple views using a 5 Fr. 4.0 Ti danish catheter. Saphenous Vein graft to the DIAG 1 selective angiography was performed in multiple view s using a 5 Fr. 4.0 [place] catheter. Right Coronary Artery selective angiography was then performed in multiple views using a 5 Fr. 3DRC (Jose) catheter. Saphenous Vein graft to the OM 1 selective angiography was performed in multiple views using a 6 Fr. MPB2. Saphenous Vein graft to the RCA selective angiography was performed in multiple views using a 6 Fr. MPB2. Left internal mammary artery graft to the LAD selective angiography was performed in multiple views using a 5 Fr. IM cathet er MP1 Guide catheter was inserted and engaged into the SVG to the RCA. Runthrough Guide wire was ad vanced to the RCA. 2.5x12 [place] Balloon catheter was inserted. Balloon catheter was advanced across lesion in the graft to the RCA. PTCA balloon inflated at 6 atms for 10 secs. Angiogram performed post balloon dilatation. [place] AP inserted Pass # 1 [place] AP Removed 3x15 Resolute Drug Eluting stent w as advanced across the lesion in the graft to the RCA. Angiogram performed post stent deployment. Ang iogram performed post stent deployment. The arterial sheath was pulled and a TR Band was applied fo r hemostasis. 15cc of air CORONARY ANGIOGRAPHY DOMINANCE: Right Dominant LEFT MAIN: 70% Prox, 80% distal LEFT ANTERIOR DECENDING ARTERY: 95% Prox SEPTAL: retrogradely. D1 distal to anastomosis 100% CIRCUMFLEX ARTERY: 100% ostial RIGHT CORONARY ARTERY: 100% ostial GRAFTS: CADET graft to the distal LAD is patent Saphenous Vein graft to the 1st OM 100% ostial Saphenous Vein graft to the RCA has a distal anastomotic lesion of 95 % INTERVENTION INFORMATION LESION SITE: Vein > to RCA (Distal) Segment Number: 3-Distal right coronary artery conduit segment - dRCA , Lesion Location: Distal Lesion Complexity: High/C, thrombus present: Yes, culprit lesion: Yes Pre Stenosis: 95 % Pre intervention ROBERTO CARLOS flow: 3 PROCEDURE: Drug Eluting Stent with pre dilatation., Aspiration thrombectomy Post Stenosis: 0 % Post intervention ROBERTO CARLOS flow: 3 Lesion Devices: Medtronic 6 Fr MP1 100cm Guide Catheter Terumo .014 Runthrough Extra Floppy 180cm straight Medtronic Resolute RX YONI 3.0x15 [place] Sci EMERGE MR 2.50x12 BALLOON Medtronic 6 Fr. [place] AP Aspiration Catheter COMPLICATIONS No Complications. Transient slow flow post-PTCA, resolved PROCEDURE MEDICATIONS Fentanyl 50 mcg IV Versed 1 mg IV Oxygen: 2 L/min via nasal cannula Adenosine 50 mcg IC 09/08/2018 11:13:53 Adenosine 50 mcg IC 09/08/2018 11:13:53 Adenosine 50 mcg IC 09/08/2018 11:17:11 Brilinta 180 mg PO @ 09/08/2018 11:49:36 Heparin given IA 09/08/2018 10:33:35 Heparin 8000 unit(s) IV 09/08/2018 10:57:24 Heparin 2000 unit(s) IV 09/08/2018 11:20:05 Nitro Paste removed per Dr Damian 09/08/2018 10:18:31 Nipride 50 mcg IC 09/08/2018 11:13:53 Nipride 50 mcg IC 09/08/2018 11:17:11 Nipride 50 mcg IC 09/08/2018 11:18:30 Nitro 100 mcg IC 09/08/2018 11:24:23 Verapamil 2.5mg, Ntg 100mcgs, 2000 units of Heparin given IA 09/08/2018 10:33:35 SUMMARY OF HEMODYNAMIC DATA Time AIR REST ECG 10:15:50 AO 116/58 (77) SA 10:35:07 Signed By Joi Damian MD On 09/08/2018 12:04:39 Joi Damian MD
--- NOTE | 2018-09-08 12:07 | EKG12_ITS ---
Test Reason : Blood Pressure : / mmHG Vent. Rate : 067 BPM Atrial Rate : 067 BPM P-R Int : 212 ms QRS Dur : 088 ms QT Int : 426 ms P-R-T Axes : 053 063 051 degrees QTc Int : 450 ms Sinus rhythm with 1st degree A-V block with occasional Premature ventricular complexes Otherwise normal ECG When compared with ECG of 08-SEP-2018 05:17, MANUAL COMPARISON REQUIRED, DATA IS UNCONFIRMED Confirmed by CHARAN BAKER, GREG ([id number]), editorial specialist WILBUR ALMEIDA ([id number]) on 09/12/2018 5:40:28 PM Referred By: ANA Confirmed By:GREG FARRAR MD
[2018-09-08] MEDS: hydroCHLOROthiazide 12.5mg 12.5 MG PO (12:24)
[2018-09-08 12:51] LABS: ACT Activated Clotting Time 279 sec (74-137)
[2018-09-08 12:51] LABS: ACT Activated Clotting Time 290 sec (74-137)
[2018-09-08 12:52] LABS: Thyroid Stim Hormone (TSH) 2.59 uIU/mL (0.358-3.74)
[2018-09-08] MEDS: 0.9% Normal Saline 1,000 ML 100 ML IV ×2 (13:14→22:42)
--- NOTE | 2018-09-08 14:08 | CRPHASE1 ---
Patient Data/Charges [employer] Engineer:: Joi Damian Refer Phase II:: Yes Phase II Referral:: [facility] Risk Factors/Lifestyle Smoking Status: Current every day smoker Hx Obesity: Yes Height: 1.73 m Weight:: 85.729 kg BMI: 28.7 Laboratory Values: Cardiac Rehab Phase I Labs Triglycerides 402 mg/dL (-199) H 09/08/18 04:40 Cholesterol 198 mg/dL (200) 09/08/18 04:40 LDL Cholesterol TNP 09/08/18 04:40 HDL Cholesterol 29 mg/dL (40-) L 09/08/18 04:40 Phase I Education Given On:: [place], Nutrition, Antiplatelet medication, CHF, Smoking cessation, Diabetes - Type I, Diabetes - Type II Knowledge of Condition:: Yes Medical/Surgical History Dyslipidemia:: Yes PTCA:: Yes
--- NOTE | 2018-09-08 14:11 | CRPHASE1_ITS ---
Patient Data/Charges [employer] Consultant:: Joi Damian Refer Phase II:: Yes Phase II Referral:: [facility] Risk Factors/Lifestyle Smoking Status: Current every day smoker Hx Obesity: Yes Height: 1.73 m Weight:: 85.729 kg BMI: 28.7 Laboratory Values: Cardiac Rehab Phase I Labs Triglycerides 402 mg/dL (-199) H 09/08/18 04:40 Cholesterol 198 mg/dL (200) 09/08/18 04:40 LDL Cholesterol TNP 09/08/18 04:40 HDL Cholesterol 29 mg/dL (40-) L 09/08/18 04:40 Phase I Education Given On:: [place], Nutrition, Antiplatelet medication, CHF, Smoking cessation, Diabetes - Type I, Diabetes - Type II Knowledge of Condition:: Yes Medical/Surgical History Dyslipidemia:: Yes PTCA:: Yes
--- NOTE | 2018-09-08 14:13 | CRPH1.INST_ITS ---
General Education CAD and cardiac anatomy and function:: Patient communicates acknowledgment Explanation of diagnoses and procedures:: Patient communicates acknowledgment Sign/Symptoms of CA:: Patient communicates acknowledgment Antiplatelet therapy: Patient communicates acknowledgment Proper use of NTG-SL: Not instructed Emergency procedures and activation of EMS: Patient communicates acknowledgment Compliance of all prescribed medications: Patient communicates acknowledgment Smoking Patient Nicotine/Smoking Risk Factors Are:: Cigarettes Recommendations Include:: Smoking cessation strategies/Smoking packet, Second- hand smoke recommendation, Participation in a smoking cessation program, Previous smoker; encourage continued cessation Nicotine/Smoking Response Code:: Patient communicates acknowledgment Dyslipidemia Patient Dyslipidemia Risk Factors Are:: Total Cholesterol, Triglycerides Dyslipidemia Response Code:: Patient communicates acknowledgment Overweight/Obesity Patient Overweight/Obesity Risk Factors Are:: BMI Normal [24-29 & > 65 years old] Recommendations Include:: Weight loss of 5-10%, Reduced calorie diet, Exercise 5-7 times/week Overweight/Obesity:: Patient communicates acknowledgment Hypertension Hypertension:: Patient communicates acknowledgment Heart Disease Heart Disease Response Code:: Patient communicates acknowledgment Diabetes Diabetes:: Patient communicates acknowledgment Metabolic Syndrome Metabolic Syndrome Response Code:: Patient communicates acknowledgment Sedentary Patient Sedentary Risk Factors Are:: Lack of regular exercise Recommendations Include:: Aerobic exercise 5-7 times/week for 20-30 minutes continuously, Benefits of regular exercise, Discussed home walking program, Monitored Outpatient Cardiac Rehab Sedentary Response Code:: Patient communicates acknowledgment Stress Stress Response Code:: Patient communicates acknowledgment
[2018-09-08] MEDS: LORazepam 1 MG Tablet PO (15:07)
[2018-09-08] MEDS: Acetaminophen 325 MG Tablet 650 MG PO (19:54)
[2018-09-08] MEDS: TICAGRELOR 90 MG TABLET PO (21:26)
[2018-09-08] MEDS: Atorvastatin Calcium 40 MG Tablet PO (21:26)
[2018-09-09] VITALS (14 sets, daily range): BP systolic 116–155; BP diastolic 39–79; PULSE 61–78; RESP 10–21; TEMP 36.3–36.7; O2SAT 96–99
[2018-09-09 04:47] LABS: Hematocrit 42.9 % (40-54); Hemoglobin 14.9 g/dl (13.0-16.5); Mean Corp Hgb Conc 34.7 g/gl (32-36); Mean Corpuscular Hgb 32.6 pg (27.0-32.0); Mean Corpuscular Volume 93.9 fL (80-94); Mean Platelet Vol. 11.3 fl (6.2-12.0); Platelet Count 144 K/mm3 (150-450); RBC Distribution Width CV 13.8 % (11.6-14.6); RBC Distribution Width SD 45.1 fl (35.1-43.9); Red Blood Count 4.57 M/mm3 (4.6-6.2); White Blood Count 7.5 K/mm3 (4.4-11.0)
[2018-09-09 04:54] LABS: Scan Indicated on CBC? Y/N NO
[2018-09-09 04:59] LABS: Anion Gap 6 (5-15); BUN 14 mg/dL (7-18); BUN/Creat Ratio 15.8 RATIO (10-20); Chloride 110 mmol/L (98-107); Creatinine, Serum 0.89 mg/dL (0.70-1.30); EST Glomerular Filtration Rate 93 mL/min (>60); Est Glom Filt Rate - Afr Amer 113 mL/min (>60); Estimated Creatinine Clearance 87.53 ml/min; Glucose 98 mg/dL (74-106); Potassium 4.1 mmol/L (3.5-5.1); Sodium Level 142 mmol/L (136-145)
[2018-09-09] MEDS: Metoprolol Tartrate 100 MG Tablet PO (08:45)
[2018-09-09] MEDS: hydroCHLOROthiazide 12.5mg 12.5 MG PO (08:45)
[2018-09-09] MEDS: Aspirin 81 MG TAB.CHEW PO (08:45)
[2018-09-09] MEDS: TICAGRELOR 90 MG TABLET PO (08:45)
[2018-09-09] MEDS: Isosorbide Mononitrate 30 MG Tablet PO (08:45)
[2018-09-09] MEDS: Fenofibrate 145 MG Tablet PO (08:49)
--- NOTE | 2018-09-09 09:51 | CM.UR ---
Physician is considering Plavix vs Brillinta. Sent bowling check request to [facility] for the Brillinta at this time. Narayan Woodard RN, CCM.
--- NOTE | 2018-09-09 11:03 | PCM.DC ---
- Discharge Diagnoses Current Active Problems: Current Active and Chronic Problems NSTEMI (non-ST elevated myocardial infarction) (Acute) Back pain (Chronic) You will use the following diet at home:: Cardiac Your food should be the consistency of: Regular Your liquids should be the consistency of: Regular/Thin Discharge Activity: Return to Normal Activity Call your doctor if your incision/area has: Increased Pain/ Swelling, Increased Redness Call your doctor if you observe: Shortness of breath, Dizziness, Chest pain, Increased palpitations (irregular heartbeat) Allergies/Adverse Reactions: Allergies No Known Allergies Allergy (Verified 09/07/18 09:47) Medications to take at Discharge Niacin [Niacin ER] 1,000 mg PO QODAY 04/21/15 Albuterol IH (ProAir) [Proair Hfa] 1 - 2 puff INHALATION Q4H PRN 09/07/18 Hydrochlorothiazide [Hctz] 12.5 mg PO DAILY 09/07/18 Meloxicam [Mobic] 15 mg PO QHS 09/07/18 Metoprolol Tartrate [Lopressor (beta juan)] 100 mg PO BID 09/07/18 Tiotropium Br/Olodaterol HCl [Stiolto Respimat Inhal [place]] 1 puff IH DAILY 09/07/18 Aspirin [Aspirin, Baby] 81 mg PO DAILY@0800 #30 tab.chew 09/09/18 Fenofibrate [Tricor] 145 mg PO DAILY #30 tablet 09/09/18 Isosorbide Mononitrate [Imdur] 30 mg PO DAILY #30 tablet 09/09/18 Ticagrelor [Brilinta] 90 mg PO BID #30 tab 09/09/18 The following prescriptions were given: Aspirin [Aspirin, Baby] 81 mg PO DAILY@0800 #30 tab.chew Fenofibrate [Tricor] 145 mg PO DAILY #30 tablet Isosorbide Mononitrate [Imdur] 30 mg PO DAILY #30 tablet Ticagrelor [Brilinta] 90 mg PO BID #30 tab Primary Care Physician: Elif Bobo NP-C [Primary Care Provider] - Please follow up with your Primary Care Physician in: 3-5 days Test Results: Test results from this visit will be discussed in further detail at your follow-up appointment, if applicable. Please Follow Up With: Cardiology When: in 2-4 weeks
--- NOTE | 2018-09-09 11:04 | PCM.DC.SUM ---
Discharge Date and Diagnosis - Problem List Patient Problems: Active and Suspected Problems NSTEMI (non-ST elevated myocardial infarction) (Acute) Date of Admission: 09/07/18 Date of Discharge: 09/09/18 - Primary Discharge Diagnosis Active and Suspected Problems NSTEMI (non-ST elevated myocardial infarction) (Acute) - Secondary Discharge Diagnosis Chronic Problems Back pain (Chronic) Benign hematuria (Chronic) Dyslipidemia (Chronic) CAD (coronary artery disease) (Chronic) History CABG ?2006 HTN (hypertension) (Chronic) Hospital Course and Treatment Imaging Results: CXR: IMPRESSION: Borderline cardiomegaly. Consults: Cardiology Operations: None Procedures: 2-D Echocardiogram - Interpretation Summary Normal left ventricle. Left ventricular systolic function is normal. Mild segmental systolic dysfunction (see wall motion). The estimated ejection fraction is 50 %. Mild (1+) tricuspid valve insufficiency. Pulmonary artery systolic pressure is 52 mmHg. Moderate pulmonary hypertension., Cardiac catheterization - CONCLUSIONS CADET to distal LAD patent. Distal LAD supplying collateral to RPDA SVG to D1 patent. Supplying Prox LAD and septals retrogradely. D1 distal to anastomosis 100% 100% ostial [place] LCX. SVG to OM 100% ostial 100% ostial [place] RCA. SVG to distal RCA 95% ulcerated lesion Successful PTCA/YONI SVG to distal RCA using Resolute Integrity 3.0x15 mm RECOMMENDATIONS ASA Indefinitley Brilinta for at least 12 months Summary of Care Provided: Per HPI: The patient is a 57 year old M with PMH as below who presents with a few day history of substernal chest pain. He states that it is inconsistent as to when it happens. 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 However he went to see a nurse practitioner yesterday for his chest pain and on the brought drive from her office to obtain labs at [facility], he had chest pain for about 35-40 minutes. And then this morning he woke up and was just sitting drinking coffee and had another episode of chest pain for 35 minutes. The pain does not radiate anywhere, but it is substernal and crushing. He states that he had four-vessel CABG 11 years ago and at that time he had chest pain that was radiating up to his head. In the ER he was found to have an elevated troponin to 15.6 which increased to 16.9 on repeat, EKG had inferior lateral ST depressions, but no ST elevations. Cardiology was called and they recommended a heparin drip and a Plavix bolus, which he received down in the ER. He will be admitted for NSTEMI and cardiac cath in the morning. Hospital Course: 1. Coronary artery disease status post four-vessel CABG 11 years ago/and STEMI status post YONI to SVG to distal RCA/hyperlipidemia/hypertension -on admission his chest pain had resolved however he was having an elevated troponin to 22.7. He was loaded with aspirin and Plavix and started on a heparin drip. He was taken for cardiac cath on the day after admission and was found to have a 95% stenosis and the venous graft to the distal RCA. The other coronary arteries that had disease unfortunate 100% occluded and could not have any intervention done. He is to be on aspirin and Brilinta. I had case management check his prescription and which should be around $18 a month for the Brilinta. I did express to him that if for some reason the cause of his Brilinta is too much for him to handle he should not stop it immediately but should talk to his doctor about switching to Plavix. Of note his lipid panel was significant for an elevated triglyceride level to over 400, he was started on fenofibrate and was continued on his niacin. Unfortunately he states that he has been tried on multiple different statin medications and had myalgias and joint pain significant from multiple different statins. Therefore he cannot be discharged on a statin. I did discuss with him extensively about the risks of continuing to smoke and the fact that if he were to quit he would cut his cardiovascular risk in half. He states that he will quit smoking. He is to follow-up with cardiac rehab and cardiology as an outpatient. He was continued on his home metoprolol, hydrochlorothiazide, and had Imdur added. Cardiology made no further changes to his medication regimen. 2. His other diagnoses were evaluated and his home medications were continued were appropriate Patient Problems: Active and Suspected Problems NSTEMI (non-ST elevated myocardial infarction) (Acute) Objective: General: Alert, Oriented x3, Cooperative, No apparent distress HEENT: Atraumatic, PERRLA, EOMI, Normocephalic Oral: Moist Mucosa Neck: Supple, No JVD, Trachea Midline Lungs: Clear to auscultation, Normal air movement, No rhonchi, No wheeze, No rales Cardiovascular: Regular rate, Regular Rhythm, Normal S1, Normal S2, No murmurs, No rub noted, No Gallop Abdomen: Soft, Non Tender, Non-Distended, No Hepato-splenomegaly Extremities: No edema, Capillary Refill Less than 3 Seconds Skin: No rashes, No breakdown Neurological: Neuro grossly intact, Sensory exam intact to light touch and pain Psych/Mental Status: Normal Affect, Appropriate - Physical Exam Vital Signs Temp Pulse Resp BP Pulse Ox 97.7 F L 69 18 155/79 H 99 09/09/18 08:00 09/09/18 08:45 09/09/18 08:00 09/09/18 08:45 09/09/18 08:00 Oxygen Flow Rate (L/min) 2 Oxygen Delivery Method Room Air Weight: 189 lb Body Mass Index (BMI) 28.6 Intake and Output for Last 24 Hours 09/07/18 09/08/18 09/09/18 23:59 23:59 23:59 Intake Total 308 / 308 2106 / 2106 1523 / 1523 Output Total 200 / 200 2100 / 2100 1050 / 1050 Balance 108 / 108 6 / 6 473 / 473 Laboratory Tests Past 24 Hrs 09/08/18 09/08/18 09/08/18 04:40 11:06 11:38 WBC RBC Hgb Hct MCV MCH MCHC RDW RDW Differential Plt Count MPV Activated Clotting Time 279 H 290 H Sodium Potassium Chloride Carbon Dioxide Anion Gap BUN Creatinine Estim Creat Clear Calc Est GFR (MDRD) Af Amer Est GFR (MDRD) Non-Af BUN/Creatinine Ratio Glucose Calcium TSH 2.59 09/09/18 09/09/18 04:32 04:32 WBC 7.5 RBC 4.57 L Hgb 14.9 Hct 42.9 MCV 93.9 MCH 32.6 H MCHC 34.7 RDW 13.8 RDW Differential 45.1 H Plt Count 144 L MPV 11.3 Activated Clotting Time Sodium 142 Potassium 4.1 Chloride 110 H Carbon Dioxide 26.0 Anion Gap 6 BUN 14 Creatinine 0.89 Estim Creat Clear Calc 87.53 Est GFR (MDRD) Af Amer 113 Est GFR (MDRD) Non-Af 93 BUN/Creatinine Ratio 15.8 Glucose 98 Calcium 8.0 L TSH Discharge Activity: Return to Normal Activity Call your doctor if your incision/area has: Increased Pain/ Swelling, Increased Redness Call your doctor if you observe: Shortness of breath, Dizziness, Chest pain, Increased palpitations (irregular heartbeat) Home Medications: Medications to take at Discharge Niacin [Niacin ER] 1,000 mg PO QODAY 04/21/15 Albuterol IH (ProAir) [Proair Hfa] 1 - 2 puff INHALATION Q4H PRN 09/07/18 Hydrochlorothiazide [Hctz] 12.5 mg PO DAILY 09/07/18 Meloxicam [Mobic] 15 mg PO QHS 09/07/18 Metoprolol Tartrate [Lopressor (beta kim)] 100 mg PO BID 09/07/18 Tiotropium Br/Olodaterol HCl [Stiolto Respimat Inhal Johnson] 1 puff IH DAILY 09/07/18 Aspirin [Aspirin, Baby] 81 mg PO DAILY@0800 #30 tab.chew 09/09/18 Fenofibrate [Tricor] 145 mg PO DAILY #30 tablet 09/09/18 Isosorbide Mononitrate [Imdur] 30 mg PO DAILY #30 tablet 09/09/18 Ticagrelor [Brilinta] 90 mg PO BID #30 tab 09/09/18 Following Prescrptions Were Given to Patient: Aspirin [Aspirin, Baby] 81 mg PO DAILY@0800 #30 tab.chew Fenofibrate [Tricor] 145 mg PO DAILY #30 tablet Isosorbide Mononitrate [Imdur] 30 mg PO DAILY #30 tablet Ticagrelor [Brilinta] 90 mg PO BID #30 tab Primary Care Physician: Elif Bobo NP-C [Primary Care Provider] - Please follow up with your Primary Care Physician in: 3-5 days Please Follow Up With: Cardiology When: in 2-4 weeks Disposition: Home Minutes spent on discharge:: 35 Patient Condition:: Good Medical Necessity - Tobacco Use Smoking Status: Current every day smoker Tobacco Use: Cigarettes Meaningful Use Info Meaningful Use Diagnoses (Choose all that apply): AMI - AMI Aspirin given w/in 24hrs of arrival?: Yes ASA at discharge?: Yes Statins at discharge?: No Reason statins not ordered:: Allergy Cruz/ARB at discharge?: No Reason Cruz/ARB not ordered:: Not indicated Beta Kim at discharge?: Yes Done w/ Acute LA measure.: Yes Code Visit Inpatient E&M: 58380 Disch Hosp
== END 2018-09-09 12:05 | disposition home or self-care (01) | DRG 247 ==
LOC: ED 10:31 → PCU 11:15 → ICU 09-08 11:12
PROVIDERS: Internal Medicine Cardiovascular Disease; Admitting Provider Family Medicine; Emergency Provider Emergency Medicine; Family Provider Nurse Practitioner Primary Care; PCP Nurse Practitioner Primary Care; Visit Provider Family Medicine
DX: I21.4 Non-ST elevation (NSTEMI) myocardial infarction (principal); I25.810 Atherosclerosis of coronary artery bypass graft(s) without angina pectoris; J44.9 Chronic obstructive pulmonary disease, unspecified; I10 Essential (primary) hypertension; F17.210 Nicotine dependence, cigarettes, uncomplicated; I25.10 Atherosclerotic heart disease of native coronary artery without angina pectoris; E78.5 Hyperlipidemia, unspecified; I25.82 Chronic total occlusion of coronary artery; Z95.1 Presence of aortocoronary bypass graft; Z79.899 Other long term (current) drug therapy
CPT/HCPCS: 36415; 71045; 80048; 80061; 84443; 84484; 85025; 85027; 85347; 85610; 85730; 92937; 93005; 93306; 93455; 99152; 99153; 99283; 99406; J0153; J7030; Q9967; A4216; C1725; C1757; C1769; C1874; C1887; C1894; C9604; J1327

== ENCOUNTER → 2018-10-11 06:31 | Outpatient (CLI) | payer OTHER, SELFPAY ==
[2018-09-08 14:11] VITALS: BMI 28.7
[2018-09-20 09:33] VITALS: BMI 29.3
--- NOTE | 2018-10-11 09:18 | STRESSREP ---
Stress Test Report Exercise myocardial perfusion stress test. 58-year-old man with a history of coronary artery disease status post coronary bypass surgery with a left internal mammary artery to left anterior descending artery, saphenous vein graft to obtuse marginal branch, saphenous vein graft to the diagonal branch, saphenous vein graft to right coronary artery. Medications: Lopressor, aspirin, isosorbide, clopidogrel, lisinopril Stress protocol: Resting EKG demonstrates normal sinus rhythm with a rate of 65 bpm resting blood pressure 142/80 mmHg T wave inversions noted in lead III. The patient exercised according to regular Gus protocol for total duration of 6 minutes the maximum heart rate attained was 113 bpm which was 70% maximum predicted heart rate maximum workload was 7 metabolic equivalents. The patient maintained sinus rhythm throughout the recording. At rest T wave inversions were noted in lead III at peak exercise nonspecific ST-T wave changes were noted with no meet the criteria for ischemia. Myocardial perfusion protocol. 14.5 mCi of technetium 99m sestamibi was injected at rest. The patient then exercised according to regular Gus protocol for total duration of 6 minutes. The maximum heart rate attained was 113 bpm which was 70% of maximum predicted heart rate the maximum workload was 7 metabolic equivalents. At peak infusion 43.6 mCi of technetium 99m sestamibi was injected stress images were obtained stress and rest images were reconstructed and compared in the short axis vertical and horizontal long axis. Perfusion SPECT analysis: Review of the stress images demonstrate a medium size defect noted involving the mid anterior wall extending to the anterior lateral wall. The septum appears to be well perfused inferior wall appears to be well perfused. The apex also appears to be well perfused. The resting images demonstrate mild improvement in the mid anterolateral wall towards the apex suggesting a mild amount of ischemia in this territory. A small mid anterior infarct is also suggested. Gated SPECT analysis. The gated ejection fraction is noted to be 39% with mild mid anterior and apical hypokinesis. Conclusion: Abnormal exercise myocardial perfusion stress test with evidence of mid anterolateral ischemia. Previous small mid anterior infarct. Mild cardiomyopathy.
== END ==
PROVIDERS: Family Provider Nurse Practitioner Primary Care; PCP Nurse Practitioner Primary Care; Referring Provider Internal Medicine Cardiovascular Disease; Visit Provider Internal Medicine Cardiovascular Disease
DX: I25.2 Old myocardial infarction (principal)
CPT/HCPCS: 78452; 93017; A9500; A4216